=== PATIENT | female | born 1965 | race Caucasian/White ===

== ENCOUNTER 2021-02-26 14:08 | Inpatient (IN) | payer MEDICAID, SELFPAY ==
[2021-02-26 14:16] VITALS: BP 137/102; PULSE 106; RESP 18; O2SAT 95
--- NOTE | 2021-02-26 14:21 | ECG_ITS ---
[facility] Test Date: 2021-02-26 Pat Name: Alley Burns Department: Room: Gender: Female Machinist Mate: : 1965 Requested By: Jose Roberto Ghosh Order Number: [id number] Luiz MD: Toi Sandoval M.D. Measurements Intervals [place] Rate: 93 P: 76 UT: 176 QRS: 63 QRSD: 86 T: 58 QT: 373 QTc: 466 Interpretive Statements SINUS RHYTHM WITH OCCASIONAL VENTRICULAR PREMATURE COMPLEXES No previous ECG available for comparison Electronically Signed On 02-27-2021 17:11:46 CDT by Toi Sandoval M.D. [id number]
--- NOTE | 2021-02-26 14:30 | ED.C_ITS ---
HPI - Psych General: Chief Complaint: Psychiatric Symptoms Stated Complaint: SI Time Seen by Provider: 02/26/21 14:21 History of Present Illness: HPI Narrative: 55-year-old female presents due to suicidal ideation. Her son recently and she told her daughter that she would like to commit suicide. She was found by police next to a bridge and was planning to jump. Patient is intoxicated. Admits to alcohol use but denies any other drug or substance use. Denies any previous active attempts to hurt herself. Denies any desire to hurt anyone else. Denies any focal pain or trauma. Review of Systems Narrative: - CONSTITUTIONAL: Denies weight loss, fever and chills. - HEENT: Denies changes in vision and hearing. - RESPIRATORY: Denies SOB and cough. - CV: Denies palpitations and CP. - GI: Denies abdominal pain, nausea, vomiting and diarrhea. - : Denies dysuria and urinary frequency. - MSK: Denies myalgia and joint pain. - SKIN: Denies rash and pruritus. - NEUROLOGICAL: Denies headache, weakness, numbness and syncope. - PSYCHIATRIC: As above Physical Exam Narrative: EXAM NARRATIVE: - GENERAL: Alert and oriented x 3. Intoxicated, verbally and physically aggressive. - EYES: EOMI. Anicteric. - HENT: Atraumatic, no C-spine tenderness. Moist mucous membranes. No scleral icterus. No cervical lymphadenopathy. - LUNGS: Clear to auscultation bilaterally. No accessory muscle use. Equal lung sounds bilaterally. No respiratory distress. - CARDIOVASCULAR: Regular rate and rhythm. No murmur. No JVD. - ABDOMEN: Soft, non-tender and non-distended. Negative CVA tenderness bilaterally, no rebound or guarding, negative Ball sign. No palpable masses. - EXTREMITIES: No edema. Non-tender. - SKIN: No rashes or lesions. Warm. - NEUROLOGIC: No meningismus or focal neurological deficits. CN II-XII grossly intact. - PSYCHIATRIC: Admits to suicidal ideation. Course Vital Signs: Vital signs: Vital Signs Pulse Rate 106 H 02/26/21 14:16 Respiratory Rate 18 02/26/21 14:16 Blood Pressure 137/102 02/26/21 14:16 Pulse Oximetry 95 02/26/21 14:16 MDM - Psych MDM Narrative: Medical decision making narrative: 55-year-old female presents with suicidal ideation. Was caught by police while attempting to jump off a bridge. Did not actually jump off for sustain any trauma. UDS positive for marijuana and she does appear mildly intoxicated however otherwise no focal abnormality is found. No other sign of active toxidrome. Was verbally and physically combative and required dose of Zyprexa and Haldol. Otherwise lab work unremarkable except for mild white count elevation of 16 does not have any other focal infectious signs. Discussed with psychiatry and they agreed patient would benefit from admission. Patient admitted in stable condition. Further ev aluation management per psychiatry team. Lab Data: Labs: Lab Results 02/26/21 02/26/21 02/26/21 18:49 18:49 20:24 WBC 16.0 10^3/uL H 10 ^3/uL (4.0-10.0) RBC 5.30 10^6/uL 10^6 /uL (4.1-5.3) Hgb 16.2 g/dL H g/dL (11.5-15.3) Hct 46.6 % % (37.0-47.0) MCV 87.9 fl fl (81-99) MCH 30.6 pg pg (28.0-34.0) MCHC 34.8 g/dL g/dL (30.0-36.0) RDW 12.7 % % (12.1-15.1) Plt Count 193 10^3/cmm 10^3 /cmm (130-400) MPV 12.1 fL H fL (7.4-10.4) Neut % (Auto) 80.6 % % Lymph % (Auto) 14.2 % % [place] % (Auto) 3.9 % % Eos % (Auto) 0.2 % % Baso % (Auto) 0.4 % % Neut # (Auto) 12.95 10^3/uL H 1 0^3/uL (1.8-7.7) Lymph # (Auto) 2.3 10^3/uL 10^3/ uL (0.8-4.8) [place] # (Auto) 0.6 10^3/uL 10^3/ uL (0.2-0.9) Eos # (Auto) 0.0 10^3/uL 10^3/ uL (0.0-0.8) Baso # (Auto) 0.1 10^3/uL 10^3/ uL (0.0-0.1) Nucleated RBC % (a uto) 0 % % Nucleated RBCs # 0.0 /100WBC /100W BC Sodium 140 mmol/L mmol/L (136-145) Potassium 4.7 mmol/L mmol/L (3.5-5.1) Chloride 103 mmol/L mmol/L (98-107) Carbon Dioxide 18 mmol/L L mmol/ L (22-29) Anion Gap 23.7 H (5-19) BUN 14 mg/dL mg/dL (6-20) Creatinine 0.4 mg/dL L mg/dL (0.5-0.9) GFR Calculation 167.0 mL/min H mL /min (90-130) Glucose 113 mg/dL mg/dL (65-115) Calculated Osmolal ity 291 mOsm/kg mOsm/ kg (285-295) Calcium 8.8 mg/dL mg/dL (8.5-10.5) Total Bilirubin 0.2 mg/dL mg/dL (0.15-1.2) AST 43 U/L H U/L (0-32) ALT 32 U/L U/L (0-33) Alkaline Phosphata se 117 IU/L H IU/L (35-105) Total Protein 6.9 g/dL g/dL (6.6-8.7) Albumin 4.3 g/dL g/dL (3.5-5.2) Globulin 2.6 g/dL g/dL (1.3-4.6) TSH 1.16 uIU/mL uIU/m L (0.27-4.20) Urine Color Urine Appearance Urine pH Ur Specific Gravit y Urine Protein Urine Glucose (UA) Urine Ketones Urine Blood Urine Nitrate Urine Bilirubin Urine Urobilinogen Ur Leukocyte Kaye ase Salicylates < 0.3 mg/dL L mg/ dL (3-10) Urine Opiates Scre en Negative ng/mL ng /mL (Negative) Acetaminophen < 5.0 ug/mL L ug/ mL (10-30) Ur Barbiturates Sc reen Negative ng/mL ng /mL (Negative) Ur Phencyclidine S crn Negative ng/mL ng /mL (Negative) Ur Amphetamines Sc reen Negative ng/mL ng /mL (Negative) U Benzodiazepines Scrn Negative ng/mL ng /mL (Negative) Urine Cocaine Scre en Negative ng/mL ng /mL (Negative) U Marijuana (THC) Screen Positive ng/mL H ng/mL (Negative) Ethyl Alcohol 137 mg/dL H mg/dL (0-10) 02/26/21 20:24 WBC RBC Hgb Hct MCV MCH MCHC RDW Plt Count MPV Neut % (Auto) Lymph % (Auto) [place] % (Auto) Eos % (Auto) Baso % (Auto) Neut # (Auto) Lymph # (Auto) [place] # (Auto) Eos # (Auto) Baso # (Auto) Nucleated RBC % (a uto) Nucleated RBCs # Sodium Potassium Chloride Carbon Dioxide Anion Gap BUN Creatinine GFR Calculation Glucose Calculated Osmolal ity Calcium Total Bilirubin AST ALT Alkaline Phosphata se Total Protein Albumin Globulin TSH Urine Color Yellow (Yellow) Urine Appearance Clear (CLEAR) Urine pH 5 (5-7) Ur Specific Gravit y 1.020 (1.005-1.030) Urine Protein Neg (Negative) Urine Glucose (UA) Norm (Normal) Urine Ketones Negative (Negative) Urine Blood Neg (Negative) Urine Nitrate Negative (Negative) Urine Bilirubin 1+ H (Negative) Urine Urobilinogen 1 mg/dL H mg/dL (Negative) Ur Leukocyte Kaye ase Negative (Negative) Salicylates Urine Opiates Scre en Acetaminophen Ur Barbiturates Sc reen Ur Phencyclidine S crn Ur Amphetamines Sc reen U Benzodiazepines Scrn Urine Cocaine Scre en U Marijuana (THC) Screen Ethyl Alcohol EKG Data^: EKG 1: Other EKG comments: Sinus rhythm, rate of 93, no sign of acute ischemia or other acute abnormality. Discharge Plan Discharge Prescriptions: No Action Unable to Assess RF: 0 Coding Level of Care Code ED Customer Service Voice for Maxine Zuñiga
[2021-02-26] MEDS: OLANZapine 10 mg VIAL 5 MG IM (15:28)
[2021-02-26] MEDS: water for injection-sterile 10 ML (15:31)
--- NOTE | 2021-02-26 15:36 | PC.PHAR ---
pt unable to verify medications-only medication that pulls up on ext med history is cyclobenzaprine 10mg tid prn filled on 09/12/20 5d/s
[2021-02-26] MEDS: haloperidol inj 5 mg/mL INJ 1 mL IM (15:59)
[2021-02-26 19:33] LABS: Basophils # 0.1 10^3/uL (0.0-0.1); Basophils % 0.4 %; Eosinophils % 0.2 %; Hematocrit 46.6 % (37.0-47.0); Hemoglobin 16.2 g/dL (11.5-15.3); Lymphocytes # 2.3 10^3/uL (0.8-4.8); Lymphocytes % 14.2 %; Mean Corpuscular HGB Conc 34.8 g/dL (30.0-36.0); Mean Corpuscular Hemoglobin 30.6 pg (28.0-34.0); Mean Corpuscular Volume 87.9 fl (81-99); Mean Platelet Volume 12.1 fL (7.4-10.4); Monocytes # 0.6 10^3/uL (0.2-0.9); Monocytes % 3.9 %; Neutrophils # 12.95 10^3/uL (1.8-7.7); Neutrophils % 80.6 %; Nucleated Red Blood Cells % 0 %; Platelet Count 193 10^3/cmm (130-400); Red Cell Distribution Width 12.7 % (12.1-15.1)
[2021-02-26 19:59] LABS: Albumin Level 4.3 g/dL (3.5-5.2); Alcohol Level 137 mg/dL (0-10); Alkaline Phosphatase 117 IU/L (35-105); Blood Urea Nitrogen 14 mg/dL (6-20); Calcium 8.8 mg/dL (8.5-10.5); Carbon Dioxide 18 mmol/L (22-29); Chloride 103 mmol/L (98-107); Globulin 2.6 g/dL (1.3-4.6); Glucose 113 mg/dL (65-115); Osmolality Calculated 291 mOsm/kg (285-295); Sodium 140 mmol/L (136-145); Thyroid Stimulating Hormone 1.16 uIU/mL (0.27-4.20); Total Bilirubin 0.2 mg/dL (0.15-1.2); Total Protein 6.9 g/dL (6.6-8.7)
[2021-02-26 20:01] LABS: Acetaminophen < 5.0 ug/mL (10-30); Alanine Aminotransferase 32 U/L (0-33); Anion Gap 23.7 (5-19); Aspartate Amino Transferase 43 U/L (0-32); Potassium 4.7 mmol/L (3.5-5.1); Salicylate < 0.3 mg/dL (3-10)
[2021-02-26 20:34] LABS: Add Urine Microscopic? NO; Charge for UA Resulting for Rev
[2021-02-26 20:46] LABS: Amphetamines Screen Urine Negative (Negative); Barbiturates Screen Urine Negative (Negative); Benzodiazepines Screen Urine Negative (Negative); Cocaine Screen Urine Negative (Negative); Opiate Screen Urine Negative (Negative); PCP Screen Urine Negative (Negative); THC Screen Urine Positive (Negative)
[2021-02-26 20:47] LABS: Bilirubin Urine 1+ (Negative); Blood Urine Neg (Negative); Glucose Urine UA Norm (Normal); Ketones Urine Negative (Negative); Leukocyte Esterase Urine Negative (Negative); Nitrate Urine Negative (Negative); Protein Urine Neg (Negative); Urine Appearance Clear (CLEAR); Urine Color Yellow (Yellow); Urobilinogen Urine 1 mg/dL (Negative); pH Urine 5 (5-7)
[2021-02-26 22:22] VITALS: BP 130/71; PULSE 84; RESP 18; O2SAT 97
--- NOTE | 2021-02-27 00:21 | PC.NURSE ---
55-year-old female presents due to suicidal ideation. Her son recently and she told her daughter that she would like to commit suicide. She was found by police next to a bridge and was planning to jump. Patient is intoxicated. Admits to alcohol use but denies any other drug or substance use. Denies any previous active attempts to hurt herself. Denies any desire to hurt anyone else. Patient denies current SI. States that she did have SI thoughts earlier but denies intent while at bridge. States that she only drinks maybe once a year and was just drunk yesterday. Denies any substance use or history. Denies any past SI/SA. Denies being on any medications. Denies any medical or psychiatric diagnosis. Patient calm and cooperative upon arrival to NPU. Appears depressed, disheveled, poor eye contact, flat affect. Compliant with admission process and went to bed after.
[2021-02-27 06:00] VITALS: BP 106/81; BP 130/71; PULSE 103; PULSE 84; RESP 17; RESP 18; O2SAT 95
--- NOTE | 2021-02-27 12:17 | NPU.GN ---
[facility] Group Topic:Meditation/ Depression Bingo General Mood of Group: Alley did attend group and participated while socializing with others. After group this customs entry writer [facility] and she wants services. This customs entry writer aided patient in completing the intake form for [facility] services. Intake packet for services is completed. Alley enjoyed the depression bingo and the meditation for group activity today.
[2021-02-27 14:00] VITALS: BP 129/94; PULSE 91; RESP 18; TEMP 36.2; O2SAT 96
--- NOTE | 2021-02-27 14:02 | P.NPUHP_ITS ---
Providers/Chief Complaint Admitting Physician: Stevie Self MD Chief Complaint: 96 HPI NPU History of Present Illness Alley Burns is a 55 year old female who presented to the emergency department with the following report: Chief Complaint: Psychiatric Symptoms Stated Complaint: SI Time Seen by Provider: 02/26/21 14:21 History of Present Illness: HPI Narrative: 55-year-old female presents due to suicidal ideation. Her son recently and she told her daughter that she would like to commit suicide. She was found by police next to a bridge and was planning to jump. Patient is intoxicated. Admits to alcohol use but denies any other drug or substance use. Denies any previous active attempts to hurt herself. Denies any desire to hurt anyone else. Denies any focal pain or trauma. She was admitted to the neuropsychiatric unit for definitive treatment of those issues. She denies any psychiatric inpatient services in the past, but reports she had outpatient services at [facility] [place] many years ago, maybe twenty years. Documentation in the system suggests that it was about fifteen years ago. She reports she was on medication back then for about six months and she believes it was Lexapro. She reports that at that time she had lost her second and she was really struggling. She reports that she smokes about a pack of cigarettes a day, denies alcohol, marijuana, or any other illicit drugs. She did do a rehab but that was at [facility], and she denies any DUI?s. She reports that she was on a job. She does painting, and cleaning houses, independently and she reports that she was having a cigarette and started having some negative thoughts. She went to the convenient store to get a pack of cigarettes and while there she picked up some ?shooters.? She reports that she drank those and was feeling kind of sick and having some rough thoughts. She reports she talked to a cousin that she talks to regularly, and she was honest about what was going on. She reports that that cousin talked to her daughter and her daughter must have called the police. She reports that she was walking and had told her cousin that she had thoughts of jumping off of a bridge, and it just so happened that the police found her on the bridge, but she denies that she was sitting there contemplating jumping, and that it was just a coincidence. She denies any suicide attempts from the past and reports she has nine grandchildren that would be reasons why she would not do that. We discussed the risks, benefits, and alternatives of her starting Wellbutrin XL 150 mg po qam, and she understood and agreed to proceed as is documented in this note. The patient reports that the nidus of this situation was that in August her son was involved in a motorcycle accident, and he was killed. She reports that this is the six-year anniversary of his tomorrow, and it hit her fairly hard. PSYCHIATRIC HISTORY: As above. SUBSTANCE ABUSE HISTORY: As above. FAMILY HISTORY: She denies mental health issues on either side and reports addiction issues on her mom?s side. She denies any suicide attempts or completions in the family. DEVELOPMENTAL HISTORY: She denies any issues with her mother?s or delivery of her She met all developmental milestones on time. She denies any speech therapy, learning support, emotional support, or special education classes. PSYCHOSOCIAL HISTORY: She reports that her parents were together when she was born and that she has a younger sister that is the product of that union, but her mom has a daughter and a son, daughter being older than her, son being younger that are her half- siblings. She endorses that her childhood was good and denied any emotional, phy sical, or sexual abuse. She reports that the highest grade she went to was 9th grade. She did not get her GED. She endorses being a heterosexual with her longest relationship being sixteen years. She has been twice, once, and mostly recently . This was fourteen to fifteen years ago. She has three children, a 36-year-old, 35-year-old, and had a 32-year-old son. She has never been in the and reports she believes in God. 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 She reports she lives in a trailer with her daughter, her grandson, and granddaughter. LEGAL HISTORY: She reports she has been in residential two times; the longest time was nine months in half-way. MEDICAL HISTORY: She denies any major medical issues. Meds NPU Home Medications Medication Instructions Recorded Confirmed Last Taken Type No Known Home Medications 02/27/21 02/27/21 Unknown History Allergies Allergy/AdvReac Type Severity Reaction Status Date / Time Unable to Assess Allergy Verified 02/26/21 15:35 Mental Status Exam MSE Comments: This is a slender, white female, in hospital scrubs, with limited grooming, adequate eye contact. No abnormal movements except for psychomotor retardation. Absent dentition. Cooperative with exam in mild distress. Speech was decreased rate and volume. Mood described as good; affect slightly subdued. Thought process, organized. Thought content: patient denied any suicidal or homicidal ideation, there were no delusions reported or noted, patient denied any auditory or visual hallucinations. Attention, concentration, and memory appear intact but were not formally tested. He is alert and oriented times three. Insight and judgment appear fair, impulse control is limited. Vitals/I&O/Wt Last Vital Signs Temp 97.2 F L 02/27/21 14:00 Pulse 91 02/27/21 14:00 Resp 18 02/27/21 14:00 BP 129/94 02/27/21 14:00 Pulse Ox 96 02/27/21 14:00 Data NPU : 02/26/21 18:49 02/26/21 18:49 A&P Assessment and plan (1) Cannabis abuse: Status: Acute (2) Alcohol use: Status: Acute (3) Bereavement: Status: Acute (4) Depression: Status: Acute (5) Anxiety: Status: Acute (6) Adjustment disorder with mixed disturbance of emotions and conduct: Status: Acute Additional A&P Information This is a 55-year-old, white female, with a long history of depression and some past history of addiction, who presents with some recent alcohol use, depression, and bereavement secondary to the loss of her youngest child, six months ago, who presents open to a trial of medication. RECOMMENDATION AND PLAN: 1. Continue current medication except start Wellbutrin XL 150 mg po qam in the morning. 2. Encourage individual, group, and milieu therapy. 3. Continue q-15 minute checks for safety. 4. Encourage sober living treatment after discharge, at the highest level of care, to which she is willing to commit. Involuntary Hold Information 96 Hour Hold: 96 Hour Involuntary Admission: No Attestations NPU Medical Necessity Statement*: Inpatient hospitalization is medically necessary and the clinically appropriate intervention, at this time. We will monitor medications and make changes as indicated. Patient will be in the hospital for over two midnights. Likely length of stay is two to four days. Coding Level of Care Code Acute Clinical Document Improvement Educator for [facility] Fwd Diagnoses Cannabis abuse F12.10 Alcohol use Z72.89 Bereavement Z63.4 Depression F32.A Anxiety F41.9 Adjustment disorder with mixed disturbance of emotions and conduct F43.25
[2021-02-27 21:45] VITALS: RESP 16
[2021-02-28 06:00] VITALS: BP 127/89; PULSE 132; RESP 18; TEMP 36.6; O2SAT 97
[2021-02-28] MEDS: nicotine 2 mg Gum BUCCAL ×4 (08:35→18:06)
[2021-02-28] MEDS: buPROPion XL (24 HR) 150 mg Tablet PO (08:35)
--- NOTE | 2021-02-28 13:48 | W.PM.NPUPNS ---
Subjective NPU Subjective: Interval history: Patient presents today reporting that she feels that she is doing okay with the Wellbutrin. She did report however that she struggles with sleep and this is even before all the psychosocial stressors that she is dealing with now. She reported in the past she has had Seroquel with good effect and we discussed the risk benefits and alternatives of starting Seroquel 50 mg p.o. nightly and she understood agreed proceed as is documented in this note. Mental Status Exam MSE Comments: This is a slender, white female, in hospital scrubs, with limited grooming, adequate eye contact. No abnormal movements except for psychomotor retardation. Absent dentition. Cooperative with exam in mild distress. Speech was decreased rate and volume. Mood described as I am okay and I know I need to be here right now; affect slightly subdued. Thought process, organized. Thought content: patient denied any suicidal or homicidal ideation, there were no delusions reported or noted, patient denied any auditory or visual hallucinations. Attention, concentration, and memory appear intact but were not formally tested. He is alert and oriented times three. Insight and judgment appear fair, impulse control is limited. Vitals/I&O/Wt Last Vital Signs Temp 97.9 F 02/28/21 06:00 Pulse 132 H 02/28/21 06:00 Resp 18 02/28/21 06:00 BP 127/89 02/28/21 06:00 Pulse Ox 97 02/28/21 06:00 Data NPU : 02/26/21 18:49 02/26/21 18:49 A&P Additional A&P Information (1) Cannabis abuse: (2) Alcohol use: (3) Bereavement: (4) Depression: (5) Anxiety: (6) Adjustment disorder with mixed disturbance of emotions and conduct: Additional A&P Information This is a 55-year-old, white female, with a long history of depression and some past history of addiction, who presents with some recent alcohol use, depression, and bereavement secondary to the loss of her youngest child, six months ago, who presents open to a trial of medication. RECOMMENDATION AND PLAN: 1. Continue current medication. Start Seroquel 50 mg p.o. nightly. 2. Encourage individual, group, and milieu therapy. 3. Continue q-15 minute checks for safety. 4. Encourage sober living treatment after discharge, at the highest level of care, to which she is willing to commit. Involuntary Hold Information 96 Hour Hold: 96 Hour Involuntary Admission: No Attestations NPU Medical Necessity Statement*: Inpatient hospitalization is medically necessary and the clinically appropriate intervention, at this time. We will monitor medications and make changes as indicated. Likely length of stay is 1-3 days. Coding Level of Care Code Acute Market Research Associate for Maxine Zuñiga
[2021-02-28 14:00] VITALS: BP 118/90; PULSE 92; RESP 18; TEMP 36.7; O2SAT 97
--- NOTE | 2021-02-28 14:06 | NPU.GN ---
[facility] Group Topic:Guido Toroer Psych Education General Mood of Group: Alley did attend group and participated in group. Alley did well in group and was social. Alley seemed mentally stable and misses home.
[2021-02-28] MEDS: nicotine 4 mg lozenge MUCOUS MEM (16:40)
[2021-02-28] MEDS: quetiapine 25 mg Tablet 50 MG PO (21:06)
[2021-02-28 22:00] VITALS: BP 107/72; PULSE 87; RESP 18; TEMP 36.6; O2SAT 97
[2021-03-01 06:00] VITALS: BP 109/82; PULSE 132; RESP 18; TEMP 36.6; O2SAT 97
[2021-03-01] MEDS: nicotine 2 mg Gum BUCCAL ×6 (06:21→16:34)
[2021-03-01] MEDS: buPROPion XL (24 HR) 150 mg Tablet PO (07:59)
--- NOTE | 2021-03-01 09:22 | W.PM.NPUPNS ---
Subjective NPU Subjective: Interval history: Patient presents today reporting he is feeling more like she is ready to go home. She reported it has been good for her to be in the hospital especially around some young men that were around her son's age and reminded her of him. She reports it did not make her feel sad in that remembrance. She reports that she feels confident that she can begin to address the feelings and bereavement issues. She reports the medications have been really helpful we discussed the likelihood of discharge in the morning. Mental Status Exam MSE Comments: This is a slender, white female, in hospital scrubs, with limited grooming, adequate eye contact. No abnormal movements except for mild psychomotor retardation. Absent dentition. Cooperative with exam in no acute distress. Speech was more normal rate and volume. Mood described as better; affect slightly subdued. Thought process, organized. Thought content: patient denied any suicidal or homicidal ideation, there were no delusions reported or noted, patient denied any auditory or visual hallucinations. Attention, concentration, and memory appear intact but were not formally tested. He is alert and oriented times three. Insight and judgment appear fair, impulse control is limited, but improving. Vitals/I&O/Wt Last Vital Signs Temp 97.9 F 03/01/21 06:00 Pulse 132 H 03/01/21 06:00 Resp 18 03/01/21 06:00 BP 109/82 03/01/21 06:00 Pulse Ox 97 03/01/21 06:00 Weight last 48 hrs Weight 63.503 kg Data NPU : 02/26/21 18:49 02/26/21 18:49 A&P Additional A&P Information (1) Cannabis abuse: (2) Alcohol use: (3) Bereavement: (4) Depression: (5) Anxiety: (6) Adjustment disorder with mixed disturbance of emotions and conduct: Additional A&P Information This is a 55-year-old, white female, with a long history of depression and some past history of addiction, who presents with some recent alcohol use, depression, and bereavement secondary to the loss of her youngest child, six months ago, who presents open to a trial of medication. RECOMMENDATION AND PLAN: 1. Continue current medication. Start Seroquel 50 mg p.o. nightly. 2. Encourage individual, group, and milieu therapy. 3. Continue q-15 minute checks for safety. 4. Encourage sober living treatment after discharge, at the highest level of care, to which she is willing to commit. 5. Likely discharge in the morning. Involuntary Hold Information 96 Hour Hold: 96 Hour Involuntary Admission: No Attestations NPU Medical Necessity Statement*: Inpatient hospitalization is medically necessary and the clinically appropriate intervention, at this time. We will monitor medications and make changes as indicated. Likely length of stay is 1-2 days. Coding Level of Care Code Acute Refrigerating Engineer for Maxine Zuñiga
[2021-03-01] MEDS: acetaminophen 325 mg Tablet 650 MG PO ×2 (11:23→18:03)
[2021-03-01 14:00] VITALS: BP 109/82; PULSE 132; RESP 18; TEMP 36.6; O2SAT 97
[2021-03-01] MEDS: hyDROXYzine 25 mg Capsule 50 MG PO (14:33)
[2021-03-01] MEDS: quetiapine 25 mg Tablet 50 MG PO (20:20)
[2021-03-01 22:00] VITALS: BP 122/83; PULSE 100; RESP 18; TEMP 36.8; O2SAT 96
[2021-03-02] MEDS: nicotine 2 mg Gum BUCCAL ×3 (05:24→10:49)
[2021-03-02 06:00] VITALS: BP 110/83; PULSE 126; RESP 18; TEMP 36.8; O2SAT 96
[2021-03-02] MEDS: buPROPion XL (24 HR) 150 mg Tablet PO (08:15)
[2021-03-02] MEDS: hyDROXYzine 25 mg Capsule 50 MG PO (08:21)
--- NOTE | 2021-03-02 09:43 | ECG_ITS ---
[facility] Test Date: 2021-03-02 Pat Name: Alley Burns Department: Room: 155 Gender: Female Automotive Design Drafter: : 1965 Requested By: Stevie Self Order Number: [id number] Luiz MD: Toi Sandoval M.D. Measurements Intervals [place] Rate: 89 P: 78 DE: 189 QRS: 70 QRSD: 84 T: 69 QT: 349 QTc: 426 Interpretive Statements SINUS RHYTHM Compared to ECG 02/26/2021 15:14:07 Ventricular premature complex(es) no longer present Electronically Signed On 03-02-2021 21:55:14 RN ED by Toi Sandoval M.D. [email or web address] Photovoltaicsavita health systemAciex Therapeutics/store/OM/[id number]
--- NOTE | 2021-03-02 11:06 | P.NPUDS_ITS ---
Diagnoses at Discharge Discharge Diagnosis (1) Cannabis abuse: Status: Acute (2) Alcohol use: Status: Acute (3) Bereavement: Status: Acute (4) Depression: Status: Acute (5) Anxiety: Status: Acute (6) Adjustment disorder with mixed disturbance of emotions and conduct: Status: Acute Reason for Visit Reason for Visit: 96 Brief History: History of Present Illness Alley Burns is a 55 year old female who presented to the emergency department with the following report: Chief Complaint: Psychiatric Symptoms Stated Complaint: SI Time Seen by Provider: 02/26/21 14:21 History of Present Illness: HPI Narrative: 55-year-old female presents due to suicidal ideation. Her son recently and she told her daughter that she would like to commit suicide. She was found by police next to a bridge and was planning to jump. Patient is intoxicated. Admits to alcohol use but denies any other drug or substance use. Denies any previous active attempts to hurt herself. Denies any desire to hurt anyone else. Denies any focal pain or trauma. She was admitted to the neuropsychiatric unit for definitive treatment of those issues. She denies any psychiatric inpatient services in the past, but reports she had outpatient services at [facility] many years ago, maybe twenty years. Documentation in the system suggests that it was about fifteen years ago. She reports she was on medication back then for about six months and she believes it was Lexapro. She reports that at that time she had lost her second and she was really struggling. She reports that she smokes about a pack of cigarettes a day, denies alcohol, marijuana, or any other illicit drugs. She did do a rehab but that was at [facility], and she denies any DUI?s. She reports that she was on a job. She does painting, and cleaning houses, independently and she reports that she was having a cigarette and started having some negative thoughts. She went to the convenient store to get a pack of cigarettes and while there she picked up some ?shooters.? She reports that she drank those and was feeling kind of sick and having some rough thoughts. She reports she talked to a cousin that she talks to regularly, and she was honest about what was going on. She reports that that cousin talked to her daughter and her daughter must have called the police. She reports that she was walking and had told her cousin that she had thoughts of jumping off of a bridge, and it just so happened that the police found her on the bridge, but she denies that she was sitting there contemplating jumping, and that it was just a coincidence. She denies any suicide attempts from the past and reports she has nine grandchildren that would be reasons why she would not do that. We discussed the risks, benefits, and alternatives of her starting Wellbutrin XL 150 mg po qam, and she understood and agreed to proceed as is documented in this note. The patient reports that the nidus of this situation was that in August her son was involved in a motorcycle accident, and he was killed. She reports that this is the six-year anniversary of his tomorrow, and it hit her fairly hard. PSYCHIATRIC HISTORY: As above. SUBSTANCE ABUSE HISTORY: As above. FAMILY HISTORY: She denies mental health issues on either side and reports addiction issues on her mom?s side. She denies any suicide attempts or completions in the family. DEVELOPMENTAL HISTORY: She denies any issues with her mother?s or delivery of her She met all developmental milestones on time. She denies any speech therapy, learning support, emotional support, or special education classes. PSYCHOSOCIAL HISTORY: She reports that her parents were together when she was born and that she has a younger sister that is the product of that union, but her mom has a daughter and a son, daughter being older than her, son being younger that are her half- siblings. She endorses that her childhood was good and denied any emotional, physical, or sexual abuse. She reports that the highest grade she went to was 9th grade. She did not get her GED. She endorses being a heterosexual with her longest relationship being sixteen years. She has been twice, once, and mostly recently . This was fourteen to fifteen years ago. She has three children, a 36-year-old, 35-year-old, and had a 32-year-old son. She has never been in the and reports she believes in God. 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 She reports she lives in a trailer with her daughter, her grandson, and granddaughter. LEGAL HISTORY: She reports she has been in prison two times; the longest time was [facility]. MEDICAL HISTORY: She denies any major medical issues. Hospital Course Hospital Course He quickly acclimated to the individual, group and milieu therapies provided. Wellbutrin XL 150 mg every morning was started as well as Seroquel 50 mg and she had marked improvement. During the hospitalization, patient had routine laboratory studies which were within normal limits except for few outliers. Additionally there was a general medical evaluation which was also within normal limits and revealed no new acute processes. Discharge Summary: At the time of discharge, she denied psychosis or lethality. Mood and anxiety were well managed. Patient endorsed a plan to avoid all drugs of abuse and follow-up with the aftercare recommendations of the treatment team. Patient was evaluated and deemed to be absent credible lethality, and had achieved the maximum benefit from an inpatient hospitalization, so was discharged. Involuntary Hold Information 96 Hour Hold: 96 Hour Involuntary Admission: No Mental Status Exam MSE Comments: This is a slender, white female, in hospital scrubs, with limited grooming, adequate eye contact. No abnormal movements except for mild psychomotor retardation. Absent dentition. Cooperative with exam in no acute distress. Speech was more normal rate and volume. Mood described as better; affect improved. Thought process, organized. Thought content: patient denied any suicidal or homicidal ideation, there were no delusions reported or noted, patient denied any auditory or visual hallucinations. Attention, concentration, and memory appear intact but were not formally tested. He is alert and oriented times three. Insight and judgment appear fair, impulse control is mproving. Discharge Data Vitals: Last Vital Signs Temp 98.2 F 03/02/21 06:00 Pulse 126 H 03/02/21 06:00 Resp 18 03/02/21 06:00 BP 110/83 03/02/21 06:00 Pulse Ox 96 03/02/21 06:00 Discharge Plan Discharge Patient Disposition: Home Condition: Stable Prescriptions: New quetiapine 25 mg Tablet 50 mg PO BEDTIME 30 Days Qty: 60 RF: 1 bupropion HCl 150 mg Tablet Extended Release 24 Hr 150 mg PO DAILY 30 Days Qty: 30 RF: 1 Discharge Orders: Discharge Order (Routine); Ordered 03/02/21 Ordered By: Stevie Self Referrals: [facility] [Outside] - 4-7 days (Walk in on Tuesdays or from 7:30am to 3:00pm to complete an initial assessment. ) Discharge Diet: Regular Discharge Activity: Resume usual activity Patient Instructions: Opioid Safety Discharge Attestations NPU Time Spent in Discharge Care*: less than 30 min Specific Discharge Activities: Specific discharge activities: educating patient, discussing with upper caser/social workers/dc planners, documenting/other paperwork and evaluating patient/reviewing data Coding Level of Care Code Acute Chg DC note Diagnoses Cannabis abuse F12.10 Alcohol use Z72.89 Bereavement Z63.4 Depression F32.A Anxiety F41.9 Adjustment disorder with mixed disturbance of emotions and conduct F43.25
[2021-03-02 11:16] VITALS: BP 130/88; PULSE 124; RESP 17; TEMP 36.9; O2SAT 97
== END 2021-03-02 11:27 | disposition home or self-care (01) | DRG 882 ==
LOC: ER 14:37 → NP 22:05
PROVIDERS: Admitting Provider Psychiatry & Neurology Psychiatry; Emergency Provider Emergency Medicine; Visit Provider Psychiatry & Neurology Psychiatry
DX: F43.25 Adjustment disorder with mixed disturbance of emotions and conduct (principal); R45.851 Suicidal ideations; F32.A Depression, unspecified; F10.129 Alcohol abuse with intoxication, unspecified; F12.10 Cannabis abuse, uncomplicated; Z63.4 Disappearance and death of family member; F17.210 Nicotine dependence, cigarettes, uncomplicated; F41.9 Anxiety disorder, unspecified
CPT/HCPCS: 80053; 80306; 80307; 81003; 84443; 85025; 93005; 96372; 97150; 97165; 99285; J1630; J3490